=== PATIENT | female | born 1975 | race Caucasian/White ===

== ENCOUNTER 2016-02-22 08:56 | Emergency (ER) | payer OTHER ==
[2016-02-22 09:19] VITALS: BP 106/72
[2016-02-22] MEDS: CIPROFLOXACIN HCL 500 MG TABLET PO ONE (09:36)
[2016-02-22] MEDS: IBUPROFEN 200 MG TABLET PO ONE (09:36)
--- NOTE | 2016-02-22 10:11 | ED Physician Documentation ---
Female Urogenital Problems - HISTORIAN Historian: patient - HPI Stated Complaint: bilat flank pain Chief Complaint: Female Urogenital Problems Additional Information: ua freq burning supra pubic and lo back pain(chronic-exaberation). no fever but chills Onset: days ago (3) Severity: moderate Location of Pain: pelvic pain, low back pain, flank pain Further Comments: yes (pt rad camacho-on feet exaberates lbp) - Vaginal Bleeding Compared to Menstrual Periods: similiar (due about 1 week) Sexual History: active - Associated Symptoms Urinary Symptoms: frequent urination, discomfort w/ urination, burning w/ urination, urgency w/ urination, pain w/ urination Discharge: denies: vaginal discharge - ROS CONST: none GI/: nausea, decreased appetite. denies: vomiting CVS/RESP: none NEURO/PSYCH: none MS/SKIN/LYMPH: none - PAST HX Past History: other (prev uti---ch lbp since age 21's) Surgeries/Procedures: , other (tubal reversal) Allergies/Adverse Reactions: Allergies Allergy/AdvReac Type Severity Reaction Status Date / Time No Known Allergies Allergy Verified 02/22/16 09:04 Home Medications: Ambulatory Orders Medication Instructions Recorded Ciprofloxacin HCl [Cipro] 500 mg PO BID #20 tablet 02/22/16 - SOCIAL HX Smoking History: less than 1 pack/day Alcohol Use: rarely Drug Use: none - FAMILY HX Family History: none - VITAL SIGNS Vital Signs: Vital Signs Temp Pulse Resp BP Pulse Ox 98.3 F 110 H 20 106/72 99 02/22/16 09:05 02/22/16 09:40 02/22/16 09:40 02/22/16 09:40 02/22/16 09:40 - REVIEWED ASSESSMENTS Nursing Assessment Reviewed: Yes Vitals Reviewed: Yes ED Results Lab/Radiology - Orders Orders: ED Orders Category Date Time Status HCG [URINE HCG] Stat Lab 02/22/16 09:20 Ordered UA [URINALYSIS] Stat Lab 02/22/16 09:20 Ordered Ciprofloxacin HCl [Cipro] Med 02/22/16 09:31 Discontinued 500 mg PO NOW ONE Ibuprofen [Advil] Med 02/22/16 09:31 Discontinued 600 mg PO NOW ONE Female Urogenital Problems - EXAM General Appearance: mild distress, moderate distress EENT: eye inspection normal Neck: nml inspection Respiratory: no resp. distress, breath sounds nml. No: respiratory distress, stridor CVS: reg rate & rhythm, heart sounds normal Abdomen: tenderness (supra pubic) Back: CVA tenderness, muscle spasm (lo back) Skin: color nml, no rash, warm,dry. No: cyanosis, diaphoresis, pallor Extremities: non-tender, normal range of motion Neuro: oriented X3, motor nml, sensation nml Discharge Clincal Impression: UTI (urinary tract infection), EXACERBATED CHRONIC LOW BACK PAIN Prescriptions: Ciprofloxacin HCl [Cipro] 500 mg PO BID #20 tablet Referrals: Ailyn De Dios MD [Primary Care Provider] - 2 Days Home Medications: Ambulatory Orders Ciprofloxacin HCl [Cipro] 500 mg PO BID #20 tablet 02/22/16 Condition: Good Disposition: HOME, SELF-CARE Decision to Admit: NO Decision Time: 10:19
[2016-02-23 05:52] LABS: APPEARANCE,URINE CLOUDY (CLEAR); COLOR,URINE YELLOW (YELLOW); OCCULT BLOOD,URINE TRACE-LYSED (NEGATIVE); PH URINE 5.5 (5.0 - 8.0); UROBILINOGEN URINE 0.2 Eu (0.2-1.0)
== END 2016-02-22 09:40 | disposition home or self-care (01) ==
LOC: ED 08:56
DX: N39.0 Urinary tract infection, site not specified (principal); M54.5 Low back pain
CPT/HCPCS: 81002; 81025; 99282

== ENCOUNTER 2017-02-14 16:10 | Emergency (ER) | payer BC ==
--- NOTE | 2017-02-14 16:19 | ED Physician Documentation ---
General Adult - HISTORIAN Historian: patient - HPI Stated Complaint: rash on body for a few weeks Chief Complaint: Skin Rash Onset: other (3 weeks) Timing: still present Severity: mild Further Comments: yes (She reports her entire family was treated for scabies. After the treatment she notes she and her continued to have a rash and he was told he had bed bugs so he was treated with steriods. She states she continues to have a rash on her arms, abdomen, back and legs that is itching. She denies any new products at home. She denies any aide with OTC meds or treatments. She is crying when explaining the situation) Last known Well Code/Unknown Code: Unknown - ROS CONST: no problems MS/SKIN/LYMPH: rash - PAST HX Past History: none Other History: none Surgeries/Procedures: none Allergies/Adverse Reactions: Allergies Allergy/AdvReac Type Severity Reaction Status Date / Time No Known Allergies Allergy Verified 02/04/17 10:29 Home Medications: Ambulatory Orders Medication Instructions Recorded NK [NK] 02/04/17 - SOCIAL HX Smoking History: cigarettes Alcohol Use: none Drug Use: none - FAMILY HX Family History: No - VITAL SIGNS Vital Signs: Vital Signs Temp Pulse Resp BP Pulse Ox 129/86 02/04/17 10:25 - REVIEWED ASSESSMENTS Nursing Assessment Reviewed: Yes Vitals Reviewed: Yes General Adult Physical Exam - PHYSICAL EXAM GENERAL APPEARANCE: mild distress EENT: eye inspection normal RESPIRATORY: no resp distress, chest non-tender, breath sounds normal CVS: reg rate & rhythm, heart sounds normal, equal pulses, no murmur ABDOMEN: soft SKIN: other (generalized dermatitis appearing rash ) EXTREMITIES: normal range of motion NEURO: oriented X3, CN's nml as tested, other (crying during exam ) Discharge Clincal Impression: Rash and nonspecific skin eruption Referrals: Ailyn De Dios MD [Primary Care Provider] - 2 Days Comments: Keep from using any new products on skin continue OTC benadryl for itch Cool showers Medrol dose pack as prescribed Return to ER or PCP for any change or concerning symptoms Condition: Stable Disposition: 01 HOME, SELF-CARE Decision to Admit: NO Date of Decison to Admit: 02/14/17 Decision Time: 16:39
[2017-02-14 17:32] VITALS: BP 126/94
== END 2017-02-14 16:55 | disposition home or self-care (01) ==
LOC: ED 16:10
DX: R21 Rash and other nonspecific skin eruption (principal)
CPT/HCPCS: 99282

== ENCOUNTER 2017-02-16 11:39 | Outpatient (CLI) | payer BC ==
--- NOTE | 2017-02-16 12:48 | Diagnostic Imaging Report ---
JOY THOMAS [facility] [id number] [facility] [address] [address] Report Submission Date: Feb 16, 2017 12:20:08 PM SOFTWARE QUALITY ANALYST Patient Study Name: FREDA CARDOZO Date: Feb 16, 2017 11:49:17 AM SOFTWARE QUALITY ANALYST Modality Type: CR Gender: F Description: CHEST : 77 Institution: [facility] Physician: JOY THOMAS Examination: Plain film ribs History: Injury Findings: 3 views of the ribs demonstrates normal cortical margins. No fracture or dislocation. Underlying parenchymal without abnormality. Impression: No rib fracture/abnormality. Electronically signed on Feb 16, 2017 12:20:08 PM SOFTWARE QUALITY ANALYST by: Jun MORALES
== END 2017-02-16 11:40 ==
LOC: RAD 11:39
PROVIDERS: ATTEND Physician Assistant
DX: R07.81 Pleurodynia (principal)
CPT/HCPCS: 71100

== ENCOUNTER 2018-05-22 12:06 | Emergency (ER) | payer BC ==
--- NOTE | 2018-05-22 12:17 | ED Physician Documentation ---
Skin Rash - HPI Stated Complaint: rash Chief Complaint: Skin Rash Additional Information: Patient presents to ED with a 12 hour history of pruritic rash. Patient states the rash started on her hands yesterday after working in the yard. Throughout the evening the rash spread to arms, face, neck and back. She has taken benedryl with some relief. Onset: hours (12) Timing: still present Duration: worse Location: facial, neck, other (hands) Quality: itchy, burning Where: home Context: Medication Exposure: none Context: Food Exposure: none Context: Other Exposure: poison gonzalo - ROS CONST: none CVS/RESP: denies: shortness of breath EYES/ENT: none GI/: none MS/SKIN/LYMPH: none NEURO/PSYCH: none - PAST HX Past History: none Other History: none Allergies/Adverse Reactions: Allergies Allergy/AdvReac Type Severity Reaction Status Date / Time No Known Allergies Allergy Verified 02/14/17 16:49 Home Medications: Ambulatory Orders Medication Instructions Recorded predniSONE [Deltasone] 10 mg PO DAILY #20 tablet 05/22/18 - SOCIAL HX Smoking History: cigarettes Alcohol Use: none Drug Use: none - FAMILY HX Family History: none - VITAL SIGNS Vital Signs: Vital Signs Temp Pulse Resp BP Pulse Ox 126/94 02/14/17 16:55 - REVIEWED ASSESSMENTS Nursing Assessment Reviewed: Yes Vitals Reviewed: Yes ED Results Lab/Radiology - Orders Orders: ED Orders Category Date Time Status methylPREDNISolone SOD SUCC [Solu-MEDROL] Med 05/22/18 12:23 Once 125 mg IM NOW ONE Skin Rash Physical Exam - EXAM General Appearance: no acute distress, alert Skin: warm,dry, erythema Location: face, anterior neck, trunk, extremities Character: maculopapular, patchy, erythematous Symptoms: inflammation Extremities: non-tender EENT: eyes nml inspection Neck: no swelling. No: lymphadenopathy Respiratory: no resp distress, breath sounds normal CVS: reg. rate & rhythm, heart sounds nml Abdomen: non-tender Neuro/Psych: oriented x3, motor nml, mood/affect nml Discharge Clincal Impression: Poison gonzalo dermatitis Prescriptions: predniSONE [Deltasone] 10 mg PO DAILY #20 tablet Referrals: Ailyn De Dios MD [Primary Care Provider] - 2 Days Additional Instructions: 1. Apply topical Benedryl and calamine as needed for itching 2. Benedryl by mouth as needed. Follow package label for dosing 3. Start Prednisone tomorrow 4. Follow up with PCP within 1 week 5. Return to ER for new or worsening symptoms Condition: Stable Disposition: 01 HOME, SELF-CARE Decision to Admit: NO Date of Decison to Admit: 05/22/18 Decision Time: 12:31
[2018-05-22 12:25] VITALS: BP 107/80
[2018-05-22] MEDS: methylPREDNISolone SOD SUCC 125 MG/2 ML VIAL IM ONE (12:30)
== END 2018-05-22 12:38 | disposition home or self-care (01) ==
LOC: ED 12:06
DX: L23.7 Allergic contact dermatitis due to plants, except food (principal); Z72.0 Tobacco use
CPT/HCPCS: 96372; 99283; J2930